=== PATIENT | male | born 1965 | race Caucasian/White ===

== ENCOUNTER 2017-08-01 23:07 | Emergency (ER) | payer OTHER ==
[~2017-08-01] VITALS: Ht 165.1 cm; Wt 96.9 kg
[~2017-08-01 23:07] MED LIST: UNABLE
[2017-08-01 23:13] VITALS: TEMP 36.8; Ht 165.1 cm; Wt 96.9 kg
[2017-08-01] MEDS ORDERED: DOXYCYCLINE HYCLATE 100 MG CAP PO ONE (23:30)
--- NOTE | 2017-08-01 23:53 | EMERGENCY ROOM VISIT NOTE ---
ED Visit Note First contact with patient: 23:16 CHIEF COMPLAINT: Tick bite HISTORY OF PRESENT ILLNESS: This 51-year-old male patient presents to the emergency department ambulatory complaining of a tick bite to the left shoulder. The patient believes that the tick has been in place for an unknown period of time. He states that he lives in the [facility] and works outside as well. His attempted to remove the tick at home and states she believes she removed most of the tick. He denies any pain. He does report some redness surrounding the tick bite. He denies any rashes, fevers or joint pain. REVIEW OF SYSTEMS: A review of systems was performed with positives and pertinent negatives listed in the history of present illness. All other systems were reviewed and are negative. ALLERGIES: No known drug allergies MEDICATIONS: No chronic medications PMH: No significant past medical history SOCIAL HISTORY: The patient lives locally with family. PHYSICAL EXAM: VITALS: Vitals are noted on the nurse's note and reviewed by myself. Vital signs stable. GENERAL: This is a 51-year-old male, in no acute distress, nondiaphoretic, well- developed well-nourished. SKIN: There is a small area of erythema to the posterior left shoulder with a small black foreign body embedded centrally. There are no further rashes. EMERGENCY DEPARTMENT COURSE: The patient was seen and examined as above. A 22- gauge needle was used to remove the remaining foreign body which appears to be a small piece of tick. Lyme prophylaxis was indicated and the patient was given a one-time dose of 200 mg doxycycline. Conservative care measures were discussed with the patient. The patient was discharged home in good condition. Blood Pressure Screening: Patient was found to have a slightly elevated blood pressure due to circumstances. I do not believe that the patient requires hypertension monitoring. Medication reconciliation: I attest that I have personally reviewed the patient 's current medication list. DIAGNOSIS: Tick bite Current/Historical Medications Miscellaneous Medications !Unable To Clarify Medication List (Unable) Allergies Coded Allergies: No Known Allergies (Unverified Adverse Reaction, Unknown, 03/16/05) Vital Signs Date Time Temp Pulse Resp B/P (MAP) Pulse Ox O2 Delivery O2 Flow Rate FiO2 08/01/17 23:58 66 18 143/87 95 08/01/17 23:13 36.8 66 18 143/87 95 Room Air Medications Administered Medications (Trade) Dose Ordered Sig/Cornel Route Start Time Stop Time Status Last Admin Dose Admin Doxycycline Hyclate (Vibramycin Cap) 200 mg ONE ONCE PO 08/01/17 23:30 08/01/17 23:32 DC 08/01/17 23:47 200 MG Departure Information Impression Primary Impression: Tick bite Dispostion Home / Self-Care Condition GOOD Referrals No Doctor, Assigned (PCP) Patient Instructions [facility] Additional Instructions Proper wound care is essential for adequate wound healing and infection prevention. You can shower and clean the wound with soap and water. Do not scour over the wound, pat dry with a towel. Do not submerse the wound (i.e. bathe or dish wash) until the wound has fully healed. You can use an antibiotic ointment with a dressing over the wound for the next 3-4 days. After this time you may leave the wound dry and open to the air. For pain control, you can use the following [id number] medicines (if >12 yo): - Regular strength (325mg/tab) Tylenol (acetaminophen) 2 tabs every 4-6 hours as needed. Do not exceed 12 tablets in a 24 hour period. Avoid taking more than 4 grams (4000 mg) of Tylenol per day. This includes any other sources of acetaminophen you may take on a regular basis. - Regular strength (200 mg/tab) Advil (ibuprofen) 1-2 tabs every 4-6 hours as needed. Do not exceed a dose of 3200 mg per day. Follow-up with your primary care provider for any new rashes, fevers, joint aches or any other new/concerning symptoms. Problem Qualifiers Primary Impression: Tick bite Encounter type: initial encounter Qualified Codes: W57.XXXA - Bitten or stung by nonvenomous insect and other nonvenomous arthropods, initial encounter
[2017-08-01 23:58] VITALS: BP 143/87; PULSE 66; O2SAT 95
== END 2017-08-01 23:58 | disposition home or self-care (01) ==
LOC: C.EDB 23:08 → C.EDC 23:58
DX: S40.262A Insect bite (nonvenomous) of left shoulder, initial encounter (principal); W57.XXXA Bitten or stung by nonvenomous insect and other nonvenomous arthropods, initial encounter

== ENCOUNTER 2019-09-06 08:07 | Observation (INO) ==
[2019-09-06] MEDS ORDERED: KETOROLAC TROMETHAMINE 15 MG/ML VIAL IV ONE (08:31)
[2019-09-06] MEDS ORDERED: ONDANSETRON INJ 2 MG/ML 2 ML VIAL IV STA (08:31)
[2019-09-06 08:43] LABS: Basophils # (auto) 0.02 K/uL (0-0.2); Basophils % (auto) 0.3 %; Eosinophils % (auto) 1.4 %; Hematocrit (blood only) 41.3 % (42-52); Hemoglobin 14.3 g/dL (14.0-18.0); Immature Granulocytes # (auto) 0.02 K/uL (0.00-0.02); Immature Granulocytes % (auto) 0.3 %; Lymphocytes # (auto) 1.08 K/uL (1.2-3.4); Lymphocytes % (auto) 14.8 %; Mean Corpuscular Hgb Conc 34.6 g/dL (32-36); Mean Corpuscular Volume 89.6 fL (80-100); Mean Platelet Volume 11.2 fL (7.4-10.4); Monocytes % (auto) 5.5 %; Neutrophils % (auto) 77.7 %; Platelet Count 183 K/uL (130-400); RDW Coefficient of Variation 13.3 % (11.5-14.5); RDW Standard Deviation 43.5 fL (36.4-46.3); Red Blood Count 4.61 M/uL (4.7-6.1); White Blood Count 7.32 K/uL (4.8-10.8)
[2019-09-06 09:00] LABS: Albumin Level 3.9 gm/dl (3.4-5.0); BUN Creatinine Ratio 12.3 (10-20); Calcium 8.7 mg/dl (8.5-10.1); Creatinine Clr Calc Pharmacy 102.6 ml/min; Est GFR (African American) 108.1; Est GFR (Non-African American) 93.3
[2019-09-06 09:03] LABS: Albumin Globulin Ratio 1.2 (0.9-2); Bilirubin,Total 0.6 mg/dl (0.2-1); Globulin 3.2 gm/dl (2.5-4.0); Total Protein 7.1 gm/dl (6.4-8.2)
--- NOTE | 2019-09-06 09:03 | CT Scan Report ---
CT SCAN OF THE ABDOMEN AND PELVIS WITHOUT CONTRAST CLINICAL HISTORY: right flank pain COMPARISON STUDY: 04/25/2019 TECHNIQUE: CT scan of the abdomen and pelvis was performed from the lung bases to the proximal femurs . Images are reviewed in the axial, sagittal, and coronal planes. IV contrast was not administered fo r this examination. A dose lowering technique was utilized adhering to the principles of ALARA. CT DOSE: 1127.20 mGy.cm FINDINGS: Lower chest: There are mild basilar atelectatic changes Liver: There are stable hypodense hepatic lesions, likely representing cysts.r in addition there is a stable 25 mm exophytic indeterminate lesion arising from the lateral segment of the left lobe. Gallbladder: Unremarkable. Spleen: Normal in size and attenuation. Pancreas: Unremarkable. Adrenal glands: Unremarkable. Kidneys: No renal, ureteral, or bladder calculi are visualized. Bowel: There are no transition zones indicate bowel obstruction. The appendix appears normal. There i s no acute diverticulitis. Peritoneum: There is no intraperitoneal free air or abdominal ascites. There are postsurgical changes of a right inguinal hernia repair Vasculature: The abdominal aorta is normal in course and caliber. Adenopathy: None. Pelvic viscera: The bladder, and pelvic viscera are unremarkable. Skeletal structures: No destructive osseous lesions are seen. IMPRESSION: 1. No acute intra-abdominal or pelvic findings 2. No evidence of bowel obstruction. No evidence of free air 3. Normal appendix. No evidence of acute diverticulitis 4. No renal, ureteral, or bladder calculi identified 5. Stable hepatic lesions Electronically signed by: Ankur Chu M.D. 09/06/2019 9:01 AM
[2019-09-06 09:09] LABS: Appearance Urine Cloudy (Clear); Bacteria Urine Automated Negative (Negative); Bilirubin Urine Negative (Negative); Blood Urine Negative (Negative); Color Urine Yellow; Epithelial Cell Urine Auto >30 /lpf (0-5); Glucose Urine UA Negative (Negative); Ketones Urine Negative (Negative); Leukocyte Esterase Urine Negative (Negative); Nitrite Urine Negative (Negative); Protein Urine Negative (Negative); RBC Urine Automated 0-4 /hpf (0-4); Specific Gravity Urine 1.017 (1.000-1.030); Urobilinogen Urine Negative (Negative); pH Urine 8.5 (4.5-7.5)
[2019-09-06] MEDS: HYDROmorphone INJ 0.5 MG/0.5 ML SYR IV PRN ×3 (09:16→13:54)
[2019-09-06] MEDS ORDERED: DEXAMETHASONE **PF** INJ 10 MG/ML VIAL IV ONE (10:25)
[2019-09-06] MEDS ORDERED: DIAZEPAM 5 MG/ML INJ 10ML VIAL IV STA (10:41)
--- NOTE | 2019-09-06 13:44 | Magnetic Resonance Report ---
MR lumbar spine wo con CLINICAL HISTORY: Severe back pain with right sided radiculopathy. Inability to walk. TECHNIQUE: Sagittal and axial T1, T2 and STIR images were obtained. COMPARISON STUDY: No previous studies for comparison. OBSERVATIONS: The vertebral bodies and posterior elements appear intact. There is no abnormal bony signal present t o suggest a marrow replacement process. L1-2: There is a mild circumferential disc bulge. There is no significant spinal or foraminal stenosi s L2-3: No disc protrusions or extrusions. No evidence of spinal canal or neural foraminal compromise. L3-4: There is a mild circumferential disc bulge. There is slight flattening of the anterior thecal s ac. There is mild facet joint arthropathy. There is no significant foraminal stenosis. L4-5: There is a small broad-based central disc protrusion. There is minor spinal canal narrowing. Th ere is minimal left-sided subforaminal narrowing. L5-S1: There is a small broad-based central disc protrusion. There is effacement of the anterior suba rachnoid space. There is mild to moderate bilateral foraminal narrowing. The conus medullaris and cauda equina appear normal. IMPRESSION: 1. Multilevel spondylytic changes with mild disc bulges at the L1-2 and L3-4 levels. In addition ther e are small broad-based central disc protrusions at the L4-5 and L5-S1 levels with very mild spinal c anal narrowing. There is mild left-sided foraminal narrowing at the L4-5 level, and mild to moderate bilateral foraminal narrowing at the L5-S1 level. Electronically signed by: Ankur Chu M.D. 09/06/2019 1:42 PM
--- NOTE | 2019-09-06 15:06 | Emergency Department Note ---
Entered by Ramya Wallace acting as a scribe for ED Provider Note CHIEF COMPLAINT: Right Flank Pain HISTORY OF PRESENT ILLNESS: The patient is a 54 year old male who presents to the Emergency Room with complaints of waxing and waning right sided flank pain that started yesterday afternoon around 1300. The patient reports that the pain peaks at 10/10 but notes that it is currently at 2/10. He states that the pain was last a 10 is morning. His notes that the patient was unable to stand up this morning secondary to the pain. The patient states that he felt like vomiting this morning but he denies any nausea currently. He denies that the pain exacerbates with palpation. He does note some worsening of the pain with movement. He denies any urinary symptoms. He denies any pain in the ribcage. He states that the pain starts in his back and radiates around his lower flank. He notes that the pain is relieved slightly by lying in a particular position. He denies taking anything for the pain. The patient denies any history of kidney stones or any similar past episodes. He denies any family history of kidney or gall sto ascencion. He notes that he takes Omeprazole, Advil, and Crestor daily. He states that he has a history of a herniated disc but denies that his current symptoms resemble past episodes of back pain. He notes that he is followed by Renea Bishop. Pt denies LOC, headache, fevers, chills, diaphoresis, visual changes, neck pain, chest pain, breathing difficulties, melena, hematochezia, urinary symptoms, numbness, weakness, bowel or bladder dysfunction, saddle numbness, lymphadenopathy, rash, or other complaints. REVIEW OF SYSTEMS: See HPI for pertinent positives and negatives. A total of ten systems were reviewed and were otherwise negative. PMHx/PSHx: HLD, PUD, herniated disc SOCIAL HISTORY: Patient lives at home. He is and employed. PHYSICAL EXAM: GENERAL: Awake, alert, uncomfortable appearing, in no distress HENT: Normocephalic, atraumatic. Oropharynx unremarkable. EYES: PERRL. Normal conjunctiva. Sclera non-icteric. NECK: Inspection normal. Non-tender. Supple. No nuchal rigidity. FROM. No masses. RESPIRATORY: Clear to auscultation. No wheezes. No rales. Normal respiratory effort. CARDIAC: Normal rate. Normal rhythm. No murmurs. No rubs. Extremities warm and well perfused. Pulses equal. No JVD. GI: Soft, non-distended. No tenderness to palpation. No rebound or guarding. No masses. RECTAL: Deferred. MUSCULOSKELETAL: Atraumatic. Chest examination reveals no tenderness. The back is symmetrical on inspection without obvious abnormality. There is no CVA tenderness to palpation. No joint edema. LOWER EXTREMITIES: Calves are equal size bilaterally and non-tender. No edema. No discoloration. NEURO: Normal sensorium. No sensory or motor deficits noted. No saddle anesthesia. SKIN: No rash or jaundice noted. EMERGENCY DEPARTMENT COURSE: 825: The patient was evaluated in room A03, and a complete history and physical examination were performed. 1010: I reevaluated the patient at this time and updated him on his current lab and imaging results. The patient stated that he was having muscle spasms on reevaluation. 1041: I reviewed the patients past records from 12/2015 [facility] [place] pain management with Dr. Davis. According to the records, patient does have degenerative changes on his MRI with foraminal narrowing at L4 and L1. Patient was treated with steroids at that time. 1220: Upon reevaluation, the patient is unable to stand up without severe pain. He is receiving additional Dilaudid. We discussed an MRI and the patient agreed to the plan. 1355: I updated the patient on his MRI results. I discussed the patient's case with DEZ Vale, who will evaluate the patient for further management and care with Dr. Crenshaw as the attending physician. MEDICAL DECISION MAKING: Prior records/ancillary studies reviewed. Patient had prior pain management injections for lumbar back pain. Triage Nursing notes reviewed and agree them. Additional history obtained from the family. The patient's history was concerning for flank and abdominal pain. Differential diagnosis: Etiologies such as renal colic, appendicitis, diverticulitis, mesenteric ischemia, aortic pathology, infections, inflammatory bowel disease, PUD, biliary pathology, UTI, as well as others were entertained. Physical examination findings: As above. ER treatment provided: IV Toradol IV Zofran IV Decadron IV Dilaudid x4 IV Valium On reassessment the patient felt somewhat better but still had significant pain and difficulty moving. Diagnostic interpretation by me: The labs revealed an unremarkable CBC. Urinalysis revealed no abnormal findings. The patient had an unremarkable chemistry panel. Imaging studies: CT imaging of the abdomen pelvis did not reveal any acute findings. Specifically no ureteral lithiasis. Due to the intractable pain and inability to ambulate the patient underwent MR imaging. There is multilevel degenerative change in the lumbar spine but no process that require acute surgical intervention. The patient has intractable pain and cannot ambulate. Further management in the hospital will be necessary. Consultation: A consultation was placed with the hospitalist. The case was discussed and diagnostics were reviewed. The patient was evaluated in the ER for further treatment. IMPRESSION: Intractable back pain, Degenerative disc disease (lumbar spine) PLAN: Being evaluated by a hospitalist The scribe's documentation has been prepared under my direction and personally reviewed by me in its entirety. I confirm that the note above accurately reflects all work, treatment, procedures, and medical decision making performed by me. Impression & Plan Intractable back pain, Degenerative disc disease, lumbar Past Med/Surg History Medical History HLD (hyperlipidemia) (Chronic) Herniated disc Peptic ulcer disease Surgical History Hx of shoulder surgery Family History Family/Other No problems noted. Father Colorectal cancer Social History Preferred Language: Telugu Communication Ability: Effective Bowl Attendant Required: No Beliefs That Will Affect Care: None marital status: Current Living Situation: Spouse current occupational status: employed Other Information That Helps Us Care for You: No Feels Safe at Home: Yes Safety Concerns: Feels Safe At This Time Smoking Status: Former smoker Tobacco Type: cigarettes ; Smoking End Date: 35 years ago minimally; occasional cigar for celebration. ; Second Hand Exposure: No ; Tobacco Cessation Education Requested by Patient: No Hx Alcohol Use: Yes Alcohol type: beer and hard liquor Hx Substance Use: Yes substance use type: marijuana Last Used Substance: Unknown Last Used Substance Other:: Weeks ago. Results & Data Vital Signs Vital Signs - 24 hr 09/06/19 08:13 09/06/19 08:21 09/06/19 08:58 Temperature 36.7 C Temperature Source Oral Sepsis Recent Fever Within 48 Hours No Sepsis New/Unexplained Change in Mental Status No Sepsis Action Taken by Nursing No Action Required Pulse Rate 69 Pulse Rate [Left Finger] 67 Pulse Rhythm Regular Pulse Rhythm [Left Finger] Regular Pulse Strength Normal Pulse Strength [Left Finger] Normal Respiratory Rate 20 20 Respiratory Effort / Characteristics Non-Labored Spontaneous Non-Labored Spontaneous Respiratory Depth Normal Normal Respiratory Pattern Regular Regular Blood Pressure 151/90 H Blood Pressure [Right Arm] 137/85 Blood Pressure Mean 110 Blood Pressure Mean [Right Arm] 102 Blood Pressure Position Sitting Blood Pressure Position [Right Arm] Sitting Pulse Oximetry 97 96 96 Oxygen Delivery Method Room Air Room Air Room Air 09/06/19 10:34 09/06/19 11:23 09/06/19 12:30 Temperature Temperature Source Sepsis Recent Fever Within 48 Hours Sepsis New/Unexplained Change in Mental Status Sepsis Action Taken by Nursing Pulse Rate Pulse Rate [Left Finger] 73 73 67 Pulse Rhythm Pulse Rhythm [Left Finger] Regular Regular Regular Pulse Strength Pulse Strength [Left Finger] Normal Normal Normal Respiratory Rate 20 20 18 Respiratory Effort / Characteristics Non-Labored Spontaneous Non-Labored Spontaneous Non-Labored Spontaneous Respiratory Depth Normal Normal Normal Respiratory Pattern Regular Regular Regular Blood Pressure Blood Pressure [Right Arm] 113/69 144/93 H 127/78 Blood Pressure Mean Blood Pressure Mean [Right Arm] 83 110 94 Blood Pressure Position Blood Pressure Position [Right Arm] Sitting Sitting Sitting Pulse Oximetry 95 93 93 Oxygen Delivery Method Room Air Room Air Room Air Home Medications Current Medication List: was personally reviewed by me Laboratory Data Attestation: I reviewed the patient's lab results. Result diagrams: 09/06/19 08:27 09/06/19 08:27 Lab Results 09/06/19 09/06/19 09/06/19 Range/Units 08:27 08:27 08:57 WBC 7.32 (4.8-10.8) K/uL RBC 4.61 L (4.7-6.1) M/uL Hgb 14.3 (14.0-18.0) g/dL Hct 41.3 L (42-52) % MCV 89.6 (80-100) fL MCH 31.0 (25-34) pg MCHC 34.6 (32-36) g/dL RDW Std Deviation 43.5 (36.4-46.3) fL RDW Coeff of [place] 13.3 (11.5-14.5) % Plt Count 183 (130-400) K/uL MPV 11.2 H (7.4-10.4) fL Immature Gran % (Auto) 0.3 % Neut % (Auto) 77.7 % Lymph % (Auto) 14.8 % [place] % (Auto) 5.5 % Eos % (Auto) 1.4 % Baso % (Auto) 0.3 % Immature Gran # (Auto) 0.02 (0.00-0.02) K/uL Neut # (Auto) 5.70 (1.4-6.5) K/uL Lymph # (Auto) 1.08 L (1.2-3.4) K/uL [place] # (Auto) 0.40 (0.11-0.59) K/uL Eos # (Auto) 0.10 (0-0.5) K/uL Baso # (Auto) 0.02 (0-0.2) K/uL Sodium 137 (136-145) mmol/L Potassium 4.0 (3.5-5.1) mmol/L Chloride 104 (98-107) mmol/L Carbon Dioxide 28 (21-32) mmol/L Anion Gap 5.0 (3-11) BUN 11 (7-18) mg/dl Creatinine 0.92 (0.6-1.4) mg/dl Est Cr Clr Drug Dosing 102.6 ml/min Est GFR ( Amer) 108.1 Est GFR (Non-Af Amer) 93.3 BUN/Creatinine Ratio 12.3 (10-20) Glucose 118 H (70-99) mg/dl Calcium 8.7 (8.5-10.1) mg/dl Total Bilirubin 0.6 (0.2-1) mg/dl AST 19 (15-37) U/L ALT 43 (12-78) U/L Alkaline Phosphatase 60 (45-117) U/L Total Protein 7.1 (6.4-8.2) gm/dl Albumin 3.9 (3.4-5.0) gm/dl Globulin 3.2 (2.5-4.0) gm/dl Albumin/Globulin Ratio 1.2 (0.9-2) Lipase 64 L (73-393) U/L Urine Color Yellow Urine Appearance Cloudy A (Clear) Urine pH 8.5 H (4.5-7.5) Ur Specific [place] 1.017 (1.000-1.030) Urine Protein Negative (Negative) Urine Glucose (UA) Negative (Negative) Urine Ketones Negative (Negative) Urine Blood Negative (Negative) Urine Nitrite Negative (Negative) Urine Bilirubin Negative (Negative) Urine Urobilinogen Negative (Negative) Ur Leukocyte Esterase Negative (Negative) Urine WBC (Auto) 1-5 (0-5) /hpf Urine RBC (Auto) 0-4 (0-4) /hpf U Hyaline Cast (Auto) 1-5 (0-5) /lpf U Epithel Cells (Auto) >30 H (0-5) /lpf Urine Bacteria (Auto) Negative (Negative) Ur Renal Epithelial Cell Not Reportable Administered Medications Hydromorphone HCl (Dilaudid) 0.5 mg IV Q15M PRN PRN Reason: Pain Stop: 09/20/19 08:30 Last Admin: 09/06/19 13:54 Dose: 0.5 mg Documented by: [id number] Admin: 09/06/19 11:39 Dose: 0.5 mg Documented by: [id number] Admin: 09/06/19 09:16 Dose: 0.5 mg Documented by: [id number] Discontinued Medications Dexamethasone Sodium Phosphate (Decadron Pf) 10 mg IV NOW ONE Stop: 09/06/19 10:26 Last Admin: 09/06/19 10:33 Dose: 10 mg Documented by: [id number] Diazepam (Valium) 5 mg IV NOW STA Stop: 09/06/19 10:42 Last Admin: 09/06/19 10:47 Dose: 5 mg Documented by: [id number] Ketorolac Tromethamine (Toradol) 10 mg IV NOW ONE Stop: 09/06/19 08:32 Last Admin: 09/06/19 08:38 Dose: 10 mg Documented by: [id number] Ondansetron HCl (Zofran) 4 mg IV NOW STA Stop: 09/06/19 08:32 Last Admin: 09/06/19 08:38 Dose: 4 mg Documented by: [id number] Blood Pressure Blood Pressure Findings: Elevated blood pressure Blood Pressure Disposition: elevated BP felt to be situational Medical Decision Making Medical Records Attestation: I reviewed the patient's medical records. Home Medications Current Medication List: was personally reviewed by me Laboratory Data Attestation: I reviewed the patient's lab results. Result diagrams: 09/06/19 08:27 09/06/19 08:27 Lab Results 09/06/19 09/06/19 09/06/19 Range/Units 08:27 08:27 08:57 WBC 7.32 (4.8-10.8) K/uL RBC 4.61 L (4.7-6.1) M/uL Hgb 14.3 (14.0-18.0) g/dL Hct 41.3 L (42-52) % MCV 89.6 (80-100) fL MCH 31.0 (25-34) pg MCHC 34.6 (32-36) g/dL RDW Std Deviation 43.5 (36.4-46.3) fL RDW Coeff of [place] 13.3 (11.5-14.5) % Plt Count 183 (130-400) K/uL MPV 11.2 H (7.4-10.4) fL Immature Gran % (Auto) 0.3 % Neut % (Auto) 77.7 % Lymph % (Auto) 14.8 % [place] % (Auto) 5.5 % Eos % (Auto) 1.4 % Baso % (Auto) 0.3 % Immature Gran # (Auto) 0.02 (0.00-0.02) K/uL Neut # (Auto) 5.70 (1.4-6.5) K/uL Lymph # (Auto) 1.08 L (1.2-3.4) K/uL [place] # (Auto) 0.40 (0.11-0.59) K/uL Eos # (Auto) 0.10 (0-0.5) K/uL Baso # (Auto) 0.02 (0-0.2) K/uL Sodium 137 (136-145) mmol/L Potassium 4.0 (3.5-5.1) mmol/L Chloride 104 (98-107) mmol/L Carbon Dioxide 28 (21-32) mmol/L Anion Gap 5.0 (3-11) BUN 11 (7-18) mg/dl Creatinine 0.92 (0.6-1.4) mg/dl Est Cr Clr Drug Dosing 102.6 ml/min Est GFR ( Amer) 108.1 Est GFR (Non-Af Amer) 93.3 BUN/Creatinine Ratio 12.3 (10-20) Glucose 118 H (70-99) mg/dl Calcium 8.7 (8.5-10.1) mg/dl Total Bilirubin 0.6 (0.2-1) mg/dl AST 19 (15-37) U/L ALT 43 (12-78) U/L Alkaline Phosphatase 60 (45-117) U/L Total Protein 7.1 (6.4-8.2) gm/dl Albumin 3.9 (3.4-5.0) gm/dl Globulin 3.2 (2.5-4.0) gm/dl Albumin/Globulin Ratio 1.2 (0.9-2) Lipase 64 L (73-393) U/L Urine Color Yellow Urine Appearance Cloudy A (Clear) Urine pH 8.5 H (4.5-7.5) Ur Specific [place] 1.017 (1.000-1.030) Urine Protein Negative (Negative) Urine Glucose (UA) Negative (Negative) Urine Ketones Negative (Negative) Urine Blood Negative (Negative) Urine Nitrite Negative (Negative) Urine Bilirubin Negative (Negative) Urine Urobilinogen Negative (Negative) Ur Leukocyte Esterase Negative (Negative) Urine WBC (Auto) 1-5 (0-5) /hpf Urine RBC (Auto) 0-4 (0-4) /hpf U Hyaline Cast (Auto) 1-5 (0-5) /lpf U Epithel Cells (Auto) >30 H (0-5) /lpf Urine Bacteria (Auto) Negative (Negative) Ur Renal Epithelial Cell Not Reportable Imaging Data Radiologist's Impression: Radiology results as stated below per my review and the radiologist's interpretation: CT SCAN OF THE ABDOMEN AND PELVIS WITHOUT CONTRAST CLINICAL HISTORY: right flank pain COMPARISON STUDY: 04/25/2019 TECHNIQUE: CT scan of the abdomen and pelvis was performed from the lung bases to the proximal femurs. Images are reviewed in the axial, sagittal, and coronal planes. IV contrast was not administered for this examination. A dose lowering technique was utilized adhering to the principles of ALARA. CT DOSE: 1127.20 mGy.cm FINDINGS: Lower chest: There are mild basilar atelectatic changes Liver: There are stable hypodense hepatic lesions, likely representing cysts.r in addition there is a stable 25 mm exophytic indeterminate lesion arising from the lateral segment of the left lobe. Gallbladder: Unremarkable. Spleen: Normal in size and attenuation. Pancreas: Unremarkable. Adrenal glands: Unremarkable. Kidneys: No renal, ureteral, or bladder calculi are visualized. Bowel: There are no transition zones indicate bowel obstruction. The appendix appears normal. There is no acute diverticulitis. Peritoneum: There is no intraperitoneal free air or abdominal ascites. There are postsurgical changes of a right inguinal hernia repair Vasculature: The abdominal aorta is normal in course and caliber. Adenopathy: None. Pelvic viscera: The bladder, and pelvic viscera are unremarkable. Skeletal structures: No destructive osseous lesions are seen. IMPRESSION: 1. No acute intra-abdominal or pelvic findings 2. No evidence of bowel obstruction. No evidence of free air 3. Normal appendix. No evidence of acute diverticulitis 4. No renal, ureteral, or bladder calculi identified 5. Stable hepatic lesions Electronically signed by: Ankur Chu M.D. 09/06/2019 9:01 AM MR lumbar spine wo con CLINICAL HISTORY: Severe back pain with right sided radiculopathy. Inability to walk. TECHNIQUE: Sagittal and axial T1, T2 and STIR images were obtained. COMPARISON STUDY: No previous studies for comparison. OBSERVATIONS: The vertebral bodies and posterior elements appear intact. There is no abnormal bony signal present to suggest a marrow replacement process. L1-2: There is a mild circumferential disc bulge. There is no significant spinal or foraminal stenosis L2-3: No disc protrusions or extrusions. No evidence of spinal canal or neural foraminal compromise. L3-4: There is a mild circumferential disc bulge. There is slight flattening of the anterior thecal sac. There is mild facet joint arthropathy. There is no significant foraminal stenosis. L4-5: There is a small broad-based central disc protrusion. There is minor spinal canal narrowing. There is minimal left-sided subforaminal narrowing. L5-S1: There is a small broad-based central disc protrusion. There is effacement of the anterior subarachnoid space. There is mild to moderate bilateral foraminal narrowing. The conus medullaris and cauda equina appear normal. IMPRESSION: 1. Multilevel spondylytic changes with mild disc bulges at the L1-2 and L3-4 levels. In addition there are small broad-based central disc protrusions at the L4-5 and L5-S1 levels with very mild spinal canal narrowing. There is mild left-sided foraminal narrowing at the L4-5 level, and mild to moderate bilateral foraminal narrowing at the L5-S1 level. Electronically signed by: Ankur Chu M.D. 09/06/2019 1:42 PM Blood Pressure Blood Pressure Findings: Elevated blood pressure Blood Pressure Disposition: elevated BP felt to be situational MDM Narrative Discharge Plan Visit Data Chief Complaint: Flank Pain Stated Complaint: R flank pain ED Provider: Farhan Barrientos Discharge Problem: Intractable back pain, Degenerative disc disease, lumbar Patient Disposition: Being Evaluated by Hospitalist Forms Stand Alone Forms: My [facility] [place] [employer] Prescriptions Prescriptions: No Action multivitamin Tablet 1 tab PO QAM RF: 0 ibuprofen 200 mg Tablet 800 mg PO QAM RF: 0 diphenhydramine-acetaminophen [Tylenol PM Extra Strength] 25-500 mg Tablet 1 tab PO UD RF: 0 omega 0-dce-fip-fish oil [Fish Oil] 1,000 mg (120 mg-180 mg) Capsule 1 cap PO QDD RF: 0 omeprazole 20 mg Capsule,Delayed Release(Dr/Ec) 20 mg PO BID RF: 0 rosuvastatin [Crestor] 10 mg Tablet 10 mg PO QAM RF: 0 Referrals Referrals: Mariusz Gupta DO [Primary Care Provider] - The scribe's documentation has been prepared under my direction and personally reviewed by me in its entirety. I confirm that the note above accurately reflects all work, treatment, procedures, and medical decision making performed by me.
--- NOTE | 2019-09-06 16:21 | History & Physical Report ---
Date of Service September 06, 2019 Assessment & Plan (1) Intractable back pain: Secondary to disc herniation with foraminal stenosis Lumbar spine MRI: Multilevel spondylytic changes with mild disc bulges at the L1-2 and L3-4 levels. In addition there are small broad-based central disc protrusions at the L4-5 and L5-S1 levels with very mild spinal canal narrowing. There is mild left- sided foraminal narrowing at the L4-5 level, and mild to moderate bilateral foraminal narrowing at the L5-S1 level. --Medrol IV 100 mg every 12 hours, Tylenol 1000 mg p.o. every 8 hours, gabapentin 300 mg twice daily, Dilaudid 0.5 mg every 4 hours as needed, Toradol 30 mg IV every 6 hours as needed --IV NS --Consult orthopedic spine Dr. Sprague Consult pain management --PT OT evaluation Prediabetes A1c BSG's , on Solu-Medrol Dyslipidemia Continue rosuvastatin and fish oil GERD Continue omeprazole DVT prophylaxis SCDs for now in case of procedures Disposition Lives at home with family PT and OT evaluation History of Present Illness 54-year-old male with history of diabetes, dyslipidemia, GERD, presenting with severe low back pain since yesterday. Patient reports that he noted to have severe low back pain starting yesterday around 1 PM, while painting a wall. Pain originates from the right lower back region spreading to the right flank and right groin, severe, worse with movement or walking. No urinary or bowel incontinence, saddle anesthesia, leg paresthesias or numbness. 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 Pain progressed to the point that the patient cannot walk secondary to pain. At the ER, CT abdomen and pelvis did not show any acute process, no nephrolithiasis. Lumbar spine MRI showed: Multilevel spondylytic changes with mild disc bulges at the L1-2 and L3-4 levels. In addition there are small broad-based central disc protrusions at the L4-5 and L5-S1 levels with very mild spinal canal narrowing. There is mild left- sided foraminal narrowing at the L4-5 level, and mild to moderate bilateral foraminal narrowing at the L5-S1 level. He received IV Toradol, IV Dilaudid, Decadron, Valium. On exam, patient reports pain is 6 out of 10, improved since being given analgesics. No other symptoms. Primary Care Provider: Mariusz Gupta DO Allergies Allergy/AdvReac Type Severity Reaction Status Date / Time No Known Allergies AdvReac Unknown Unverified 09/06/19 09:13 Home Medications Home Medications Medication Instructions Recorded Confirmed Type omeprazole 20 mg PO BID 04/25/19 09/06/19 History rosuvastatin [Crestor] 10 mg PO QAM 04/25/19 09/06/19 History diphenhydramine-acetaminophen 1 tab PO UD 09/06/19 09/06/19 History [Tylenol PM Extra Strength] ibuprofen 800 mg PO QAM 09/06/19 09/06/19 History multivitamin 1 tab PO QAM 09/06/19 09/06/19 History omega 5-jaf-zvr-fish oil [Fish Oil] 1 cap PO QDD 09/06/19 09/06/19 History Past Med/Surg History Medical History HLD (hyperlipidemia) (Chronic) Herniated disc Peptic ulcer disease Surgical History Hx of shoulder surgery Family History Family/Other No problems noted. 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 ; Second Hand Exposure: No ; Tobacco Cessation Education Requested by Patient: No Hx Alcohol Use: Yes Alcohol type: beer and hard liquor Hx Substance Use: Yes substance use type: marijuana Last Used Substance: Unknown Last Used Substance Other:: Weeks ago. Review of Systems Review of Systems: All systems reviewed & are unremarkable except as noted in HPI & below Physical Exam Physical Exam: General- oriented x 3, not in distress, speaks in sentences with no effort or accessory muscle use Head- atraumatic Eyes- PERRL, EOMI, anicteric ENT- oropharynx clear Neck- supple, no JVD, no adenopathy, no thyromegaly; carotids +2/2, no bruits appreciated Lungs- clear to auscultation bilaterally, no rales/wheezes Heart- normal rate, regular rhythm; no murmur, no gallop, no rub appreciated Abdomen- normal bowel sounds, nondistended, soft, nontender, no masses or hepatosplenomegaly Extremities- no pretibial edema, no calf tenderness; peripheral pulses intact Positive straight leg test Neuro- alert, oriented x 3; CN 2-12 grossly intact; motor 5/5 bilaterally;sensation 100% on all extremities; no other gross focal neurologic deficits Skin- warm & dry Results & Data Vital Signs (Past 12 Hours) Vital Signs Temp Pulse Pulse Resp BP BP Pulse Ox 09/06/19 12:30 67 18 127/78 93 09/06/19 11:23 73 20 144/93 H 93 09/06/19 10:34 73 20 113/69 95 09/06/19 08:58 67 20 137/85 96 09/06/19 08:21 96 09/06/19 08:13 36.7 C 69 20 151/90 H 97 Laboratory Results Laboratory Results - last 24 hr 09/06/19 09/06/19 09/06/19 08:27 08:27 08:27 WBC 7.32 RBC 4.61 L Hgb 14.3 Hct 41.3 L MCV 89.6 MCH 31.0 MCHC 34.6 RDW Std Deviation 43.5 RDW Coeff of [place] 13.3 Plt Count 183 MPV 11.2 H Immature Gran % (Auto) 0.3 Neut % (Auto) 77.7 Lymph % (Auto) 14.8 [place] % (Auto) 5.5 Eos % (Auto) 1.4 Baso % (Auto) 0.3 Immature Gran # (Auto) 0.02 Neut # (Auto) 5.70 Lymph # (Auto) 1.08 L [place] # (Auto) 0.40 Eos # (Auto) 0.10 Baso # (Auto) 0.02 Sodium 137 Potassium 4.0 Chloride 104 Carbon Dioxide 28 Anion Gap 5.0 BUN 11 Creatinine 0.92 Est Cr Clr Drug Dosing 102.6 Est GFR ( Amer) 108.1 Est GFR (Non-Af Amer) 93.3 BUN/Creatinine Ratio 12.3 Glucose 118 H Calcium 8.7 Total Bilirubin 0.6 AST 19 ALT 43 Alkaline Phosphatase 60 Total Protein 7.1 Albumin 3.9 Globulin 3.2 Albumin/Globulin Ratio 1.2 Lipase 64 L Urine Color Urine Appearance Urine pH Ur Specific [place] Urine Protein Urine Glucose (UA) Urine Ketones Urine Blood Urine Nitrite Urine Bilirubin Urine Urobilinogen Ur Leukocyte Esterase Urine WBC (Auto) Urine RBC (Auto) U Hyaline Cast (Auto) U Epithel Cells (Auto) Urine Bacteria (Auto) Ur Renal Epithelial Cell Hepatitis C Ab Screen Neg 09/06/19 08:57 WBC RBC Hgb Hct MCV MCH MCHC RDW Std Deviation RDW Coeff of [place] Plt Count MPV Immature Gran % (Auto) Neut % (Auto) Lymph % (Auto) [place] % (Auto) Eos % (Auto) Baso % (Auto) Immature Gran # (Auto) Neut # (Auto) Lymph # (Auto) [place] # (Auto) Eos # (Auto) Baso # (Auto) Sodium Potassium Chloride Carbon Dioxide Anion Gap BUN Creatinine Est Cr Clr Drug Dosing Est GFR ( Amer) Est GFR (Non-Af Amer) BUN/Creatinine Ratio Glucose Calcium Total Bilirubin AST ALT Alkaline Phosphatase Total Protein Albumin Globulin Albumin/Globulin Ratio Lipase Urine Color Yellow Urine Appearance Cloudy A Urine pH 8.5 H Ur Specific [place] 1.017 Urine Protein Negative Urine Glucose (UA) Negative Urine Ketones Negative Urine Blood Negative Urine Nitrite Negative Urine Bilirubin Negative Urine Urobilinogen Negative Ur Leukocyte Esterase Negative Urine WBC (Auto) 1-5 Urine RBC (Auto) 0-4 U Hyaline Cast (Auto) 1-5 U Epithel Cells (Auto) >30 H Urine Bacteria (Auto) Negative Ur Renal Epithelial Cell Not Reportable Hepatitis C Ab Screen Code Status & VTE Plan Code Status FULL CODE
[2019-09-06] MEDS ORDERED: GLUCOSE 40% GEL 15 GM TUBE PO PRN (16:55)
[2019-09-06] MEDS ORDERED: GLUCAGON FOR INJ 1 MG VIAL SQ PRN (16:55)
[2019-09-06] MEDS ORDERED: DEXTROSE 50% 50 ML SYRINGE IV PRN (16:55)
[2019-09-06] MEDS ORDERED: GLUCOSE 10 TABS/TUBE PO PRN (16:55)
[2019-09-06] MEDS ORDERED: ONDANSETRON INJ 2 MG/ML 2 ML VIAL IV PRN (16:55)
[2019-09-06] MEDS ORDERED: HYDROmorphone INJ 0.5 MG/0.5 ML SYR IV PRN (16:55)
[2019-09-06] MEDS ORDERED: CARBOHYDRATES FOR HYPOGLYCEMIA PO PRN (16:55)
[2019-09-06] MEDS ORDERED: OMEGA-3 (PURIFIED FISH OIL) 1 GM CAP PO SCH (17:30)
[2019-09-06] MEDS: KETOROLAC 30 MG/ML VIAL IV PRN (17:31)
[2019-09-06] MEDS: SODIUM CHLORIDE 0.9% 1000ML 1,000 ML IV SCH (17:41)
[2019-09-06] MEDS: ACETAMINOPHEN 500 MG TAB PO SCH (17:41)
[2019-09-06] MEDS: GABAPENTIN 300 MG CAP PO SCH ×2 (17:42→22:37)
[2019-09-06] MEDS: methylPREDNISolone 40 MG in SYRINGE 0 ML IV SCH (21:27)
[2019-09-06] MEDS: PANTOprazole 40 MG TAB PO SCH (21:27)
[2019-09-07] MEDS: KETOROLAC 30 MG/ML VIAL IV PRN (06:07)
[2019-09-07] MEDS: SODIUM CHLORIDE 0.9% 1000ML 1,000 ML IV SCH (06:07)
[2019-09-07] MEDS: ACETAMINOPHEN 500 MG TAB PO SCH (06:11)
[2019-09-07 06:41] LABS: BUN Creatinine Ratio 20.7 (10-20); Creatinine Clr Calc Pharmacy 130.5 ml/min; Est GFR (African American) 121.7; Potassium 4.2 mmol/L (3.5-5.1)
[2019-09-07] MEDS ORDERED: IBUPROFEN 800 MG TAB PO PRN (08:24)
[2019-09-07] MEDS ORDERED: OXYCODONE HCL IR 5 MG TAB (IMMEDIATE RELEASE) PO PRN (08:24)
[2019-09-07] MEDS: PANTOprazole 40 MG TAB PO SCH (08:45)
[2019-09-07] MEDS: methylPREDNISolone 40 MG in SYRINGE 0 ML IV SCH (08:45)
[2019-09-07] MEDS: GABAPENTIN 300 MG CAP PO SCH (08:45)
--- NOTE | 2019-09-07 08:57 | Consultation ---
Date of Consultation September 07, 2019 Assessment & Plan (1) Intractable back pain: Patient's pain is significantly improved. Most likely a lumbar strain. There are no acute surgical indications. Does not require any type of pain management at this point in time. We will continue with activity as tolerated/physical therapy. Ambulate as tolerated. Lifting is as tolerated. Orthopedically stable for discharge. follow-up was on an as needed basis. Supervising Physician Co-Signing Physician Notes Dr. Julio Cesar Sprague History of Present Illness Is a pleasant 54-year-old gentleman that we are asked to see in consultation for his lumbar spine. Patient states about 48 hours ago after painting he had an acute onset of severe right-sided lumbar/flank pain. Denies radicular pain. He was unable to ambulate or control the pain at home therefore his brought him to the emergency room where he was subsequently admitted. This morning he states his pain is about 70 to 80% improved. He was having right-sided groin pain that has since resolved. He is up and ambulatory around the room and voiding without issue. Currently ambulating independently. Denies bowel or bl adder dysfunction. He has had a similar episode about 3 years ago but not to the degree of this more recent flareup. He underwent pain management injections with Dr. Davis at that point in time. Attending Physician: Laura Mendoza DO Allergies Allergy/AdvReac Type Severity Reaction Status Date / Time No Known Allergies AdvReac Unknown Unverified 09/06/19 09:13 Home Medications Home Medications Medication Instructions Recorded Confirmed Type omeprazole 20 mg PO BID 04/25/19 09/06/19 History rosuvastatin [Crestor] 10 mg PO QAM 04/25/19 09/06/19 History diphenhydramine-acetaminophen 1 tab PO UD 09/06/19 09/06/19 History [Tylenol PM Extra Strength] ibuprofen 800 mg PO QAM 09/06/19 09/06/19 History multivitamin 1 tab PO QAM 09/06/19 09/06/19 History omega 4-tay-exo-fish oil [Fish Oil] 1 cap PO QDD 09/06/19 09/06/19 History Patient History Medical History HLD (hyperlipidemia) (Chronic) Herniated disc Peptic ulcer disease Surgical History Hx of shoulder surgery Family History Family/Other No problems noted. 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 ; Second Hand Exposure: No ; Tobacco Cessation Education Requested by Patient: No Hx Alcohol Use: Yes Alcohol type: beer and hard liquor Hx Substance Use: Yes substance use type: marijuana Last Used Substance: Unknown Last Used Substance Other:: Weeks ago. Review of Systems Review of Systems: All systems reviewed & are unremarkable except as noted in HPI & below Physical Exam Physical Exam: He sitting on the edge of the bed in conjunction with his . He is in no obvious distress. Cooperative the exam. There is no obvious skin markings or lesions across the thoracal lumbar spine. Nontender to palpation and percussion to the thoracolumbar spine. Nontender over the sacroiliac regions. Lower extremities are neurovascular intact bilaterally. Negative tension signs bilaterally. Motor testing is 5 5 bilateral EHL, dorsiflexion, plantar flexion, quadriceps, hamstrings, hip flexors hip abductor's and hip adductor's. Constitutional: WD/WN, vitals as above Eyes: normal visual marin by confrontation ENMT: external ear and nose normal, oropharynx normal Neck: normal visual inspection Respiratory: normal respiratory effort Cardiovascular: Extremities: normal capillary refill Gastrointestinal (Abdomen): Inspection/Auscultation: abdomen normal to inspection Musculoskeletal: no cyanosis or clubbing, extremities motor strength 5/5 Extremities: extremities normal to inspection and strength 5/5 throughout Skin: no rashes, warm and dry Neurologic: patellar DTR's 2+ bilat, sensation intact deep tendon reflexes 2+ bilaterally and moves all extremities Psychiatric: A+Ox3, euthymic affect Results & Data Vital Signs (Past 12 Hours) Vital Signs Temp Pulse Resp BP Pulse Ox 09/07/19 07:54 36.7 C 80 18 133/85 93 09/06/19 23:25 36.4 C L 77 18 123/73 94 Diagnostic Findings Patient: HUNG SHABAZZ Date: 09/06/19 MR#: [id number]: [address] Acct ID:[id number]: Date: 1965City Zip: [place] [address] Age: 54Location: ED Sex: M Room/Bed: Att Phy:Diagnosis: R flank pain Yvette Phy: Mariusz Gupta, DOService Date: 09/06/19 Fam Phy:Interpreting Phy: Ankur Chu MD Admit Phy: Ordering Phy: Hung Barrientos MD cc: ~ MR lumbar spine wo con CLINICAL HISTORY: Severe back pain with right sided radiculopathy. Inability to walk. TECHNIQUE: Sagittal and axial T1, T2 and STIR images were obtained. COMPARISON STUDY: No previous studies for comparison. OBSERVATIONS: The vertebral bodies and posterior elements appear intact. There is no abnormal bony signal present to suggest a marrow replacement process. L1-2: There is a mild circumferential disc bulge. There is no significant spinal or foraminal stenosis L2-3: No disc protrusions or extrusions. No evidence of spinal canal or neural foraminal compromise. L3-4: There is a mild circumferential disc bulge. There is slight flattening of the anterior thecal sac. There is mild facet joint arthropathy. There is no significant foraminal stenosis. L4-5: There is a small broad-based central disc protrusion. There is minor spinal canal narrowing. There is minimal left-sided subforaminal narrowing. L5-S1: There is a small broad-based central disc protrusion. There is effacement of the anterior subarachnoid space. There is mild to moderate bilateral foraminal narrowing. The conus medullaris and cauda equina appear normal. IMPRESSION: 1. Multilevel spondylytic changes with mild disc bulges at the L1-2 and L3-4 levels. In addition there are small broad-based central disc protrusions at the L4-5 and L5-S1 levels with very mild spinal canal narrowing. There is mild left- sided foraminal narrowing at the L4-5 level, and mild to moderate bilateral foraminal narrowing at the L5-S1 level. Electronically signed by: Ankur Chu M.D. 09/06/2019 1:42 PM Dictated: 09/06/19 1336 Transcribed: 09/06/19 1336
[2019-09-07] MEDS ORDERED: LIDOCAINE 5% 1 PATCH TD SCH (09:00)
[2019-09-07] MEDS ORDERED: MULTIVITAMIN TAB PO SCH (09:00)
[2019-09-07] MEDS ORDERED: ROSUVASTATIN CALCIUM 10 MG TAB PO SCH (09:00)
[2019-09-07] MEDS ORDERED: DOCUSATE SODIUM/SENNA 50/8.6MG TAB PO SCH (09:00)
--- NOTE | 2019-09-07 14:17 | Discharge Summary ---
Date of Service September 07, 2019 Admission HPI Per Admitting Provider 54-year-old male with history of diabetes, dyslipidemia, GERD, presenting with severe low back pain since yesterday. Patient reports that he noted to have severe low back pain starting yesterday around 1 PM, while painting a wall. Pain originates from the right lower back region spreading to the right flank and right groin, severe, worse with movement or walking. No urinary or bowel incontinence, saddle anesthesia, leg paresthesias or numbness. 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 Pain progressed to the point that the patient cannot walk secondary to pain. At the ER, CT abdomen and pelvis did not show any acute process, no nephrolithiasis. Lumbar spine MRI showed: Multilevel spondylytic changes with mild disc bulges at the L1-2 and L3-4 levels. In addition there are small broad-based central disc protrusions at the L4-5 and L5-S1 levels with very mild spinal canal narrowing. There is mild left- sided foraminal narrowing at the L4-5 level, and mild to moderate bilateral foraminal narrowing at the L5-S1 level. He received IV Toradol, IV Dilaudid, Decadron, Valium. On exam, patient reports pain is 6 out of 10, improved since being given analgesics. No other symptoms. Admission Exam Per Admitting Provider General- oriented x 3, not in distress, speaks in sentences with no effort or accessory muscle use Head- atraumatic Eyes- PERRL, EOMI, anicteric ENT- oropharynx clear Neck- supple, no JVD, no adenopathy, no thyromegaly; carotids +2/2, no bruits appreciated Lungs- clear to auscultation bilaterally, no rales/wheezes Heart- normal rate, regular rhythm; no murmur, no gallop, no rub appreciated Abdomen- normal bowel sounds, nondistended, soft, nontender, no masses or hepatosplenomegaly Extremities- no pretibial edema, no calf tenderness; peripheral pulses intact Positive straight leg test Neuro- alert, oriented x 3; CN 2-12 grossly intact; motor 5/5 bilater ally;sensation 100% on all extremities; no other gross focal neurologic deficits Skin- warm & dry Principal Diagnosis acute back pain 2/2/ lumbar strain Discharge Exam CONSTITUTIONAL: WNWD, vitals as above, generally well-appearing EYES: normal conjunctivae, no scleral icterus ENT: MMM RESPIRATORY: clear to auscultation bilaterally, no crackles, rales or wheezes, normal respiratory effort CARDIOVASCULAR: regular rate and rhythm, S1 and 2 heard without murmurs, gallops or rubs, no JVD, no peripheral edema GASTROINTESTINAL: normal bowel sounds, soft, nontender, nondistended MUSCULOSKELETAL: strength 5/5 throughout, head is normocephalic and atraumatic, no lower back pain to palpation, no sacral pain to palpation. SKIN: warm and dry NEUROLOGIC: patellar DTR 2+ bilat. CN 2-12 grossly intact, no sensory deficit in lower extremities, normal cognition, normal speech, no gross focal deficits. PSYCHIATRIC: alert cooperative and oriented to person, place and time. Discharge Data Allergies Allergy/AdvReac Type Severity Reaction Status Date / Time No Known Allergies AdvReac Unknown Unverified 09/06/19 09:13 Consultations 09/06/19 14:01 ED Decision to Admit Stat 09/06/19 16:55 Consult Orthopedic Surgery Routine Consult Pain Management Routine Ordered Studies 09/06/19 08:31 CT abd pelvis wo con Stat 09/06/19 12:30 MR lumbar spine wo con Stat Hospital Course (1) Intractable back pain: 54-year-old man with history of chronic back pain presented with acute inability to walk with intractable back pain. He was admitted to the hospitalist team and ortho spine was consulted. A lumbar spine MRI was revealing mild disc bulges at L1-L2 and L3-L4 levels. In addition there were small broad-based central disc protrusions at the L4-5 and L5-S1 levels with very mild spinal canal narrowing. There was mild left-sided foraminal narrowing at L4-5 level and mild to moderate bilateral foraminal narrowing at the L5-S1 level. He was given steroids in the form of Medrol, scheduled Tylenol, gabapentin, and Toradol with approximately 75% improvement in his pain the following morning. A Lidoderm patch was helpful and he also took a Roxicodone. This improved his pain completely and he was able to ambulate. Orthopedic spine was consulted and evaluated the patient the following morning. Their assessment was consistent with a lumbar strain. There were no acute surgical indications,and the patient was pain-free not requiring further therapy or hospitalization. He was stable for discharge and close follow-up with primary care as needed. At time of discharge he was hemodynamically stable and afebrile and tolerating p.o. He was mentating and ambulating at baseline and physical exam was otherwise unremarkable including no pain to palpation of his back, straight leg raise testing or neurologic deficit. During his hospitalization he was also given a CT scan of the abdomen pelvis without contrast for further investigation of right flank pain. This revealed no acute intra-abdominal or pelvic findings, no evidence of bowel obstruction, no evidence of free air, and normal appendix with no evidence of diverticulitis, no renal, ureteral, or bladder calculi identified and stable hepatic lesions, likely representing cysts. There was also a 25 mm exophytic indeterminate lesion arising in the lateral segment of left lobe however, this was stable. Further investigation by primary care as required. Total Time Total Time Spent Total Time Spent (In Minutes): 60 Total Time Includes: Examination of the Patient, Discharge Planning, Medication Reconciliation and Communication With Other Providers Discharge Plan Discharge Items Patient Disposition: Home - Self-Care Reason For Visit: SEVERE BACK PAIN Discharge Diagnosis: lumbar strain Condition on Discharge: Good Activity: Resume your previous activity Non-emergency contact: Primary Care Provider Call non-emergency contact if: you have any medication questions, your symptoms worsen, your pain is not controlled, your pain is worsening, your pain is unusual for you, your pain is concerning for you and you have a fever Follow-up/Referrals: Mariusz Gupta DO [Primary Care Provider] - Diet: Regular Addtl Attending Provider Instructions: Please take all medications as instructed on discharge list below. It is recommended that you follow-up with your primary care physician within one week of discharge from the hospital to ensure you are still doing well. It was a pleasure taking care of you! Please call if you have any questions or problems. You can reach a [facility] hospitalist on duty at [facility] 24 hours a day by calling [phone]. Take care of yourself. Laura Mendoza DO [facility] Hospitalist Pending Studies at Discharge: No Stand-Alone Forms: My [facility] [employer], Smoking Cessation Medications and DC Order Prescriptions: New ibuprofen 800 mg tablet 800 mg PO Q8H PRN (Reason: back pain) Qty: 30 RF: 0 lidocaine [Lidoderm] 5 % adhesive patch,medicated 1 patch TOP DAILY Qty: 15 RF: 1 Continued multivitamin Tablet 1 tab PO QAM RF: 0 diphenhydramine-acetaminophen [Tylenol PM Extra Strength] 25-500 mg Tablet 1 tab PO UD RF: 0 omega 0-lff-eer-fish oil [Fish Oil] 1,000 mg (120 mg-180 mg) Capsule 1 cap PO QDD RF: 0 omeprazole 20 mg Capsule,Delayed Release(Dr/Ec) 20 mg PO BID RF: 0 rosuvastatin [Crestor] 10 mg Tablet 10 mg PO QAM RF: 0 Discontinued ibuprofen 200 mg Tablet 800 mg PO QAM RF: 0 Discharge Orders: Discharge Order (Routine); Ordered 09/07/19 Ordered By: Laura Duncan/Other Patient Handouts: Back Pain Relieve Admission Data Admit Date/Time: 09/06/19 15:35 Attending Provider: Laura Mendoza Admit Provider: Prashanth Crenshaw Primary Care Provider: Mariusz Gupat Other Providers: Prashanth Crenshaw ; Fidelina Worley ; Julio Cesar Sprague Other Interventions: Discharge Summary Assessment (RN) Last Done: 09/07/19 14:22 DC Date/Time DO NOT enter until pt leaves facility: 09/07/19 14:38
[2019-09-08 07:35] LABS: Estimated Average Glucose 120 mg/dl; Hemoglobin A1C 5.8 % (4.5-5.6)
--- NOTE | 2019-09-08 08:05 | Pain Management Consultation ---
Date of Consultation September 08, 2019 Assessment & Plan (1) Degenerative disc disease, lumbar: pt was d/c'd prior to being seen. History of Present Illness Attending Physician: Laura Mendoza DO Allergies Allergy/AdvReac Type Severity Reaction Status Date / Time No Known Allergies AdvReac Unknown Unverified 09/06/19 09:13 Home Medications Home Medications Medication Instructions Recorded Confirmed Type omeprazole 20 mg PO BID 04/25/19 09/06/19 History rosuvastatin [Crestor] 10 mg PO QAM 04/25/19 09/06/19 History diphenhydramine-acetaminophen 1 tab PO UD 09/06/19 09/06/19 History [Tylenol PM Extra Strength] multivitamin 1 tab PO QAM 09/06/19 09/06/19 History omega 0-xsv-ikb-fish oil [Fish Oil] 1 cap PO QDD 09/06/19 09/06/19 History ibuprofen 800 mg PO Q8H PRN #30 tab 09/07/19 Rx lidocaine [Lidoderm] 1 patch TOP DAILY #15 ea 09/07/19 Rx Patient History Medical History HLD (hyperlipidemia) (Chronic) Herniated disc Peptic ulcer disease Surgical History Hx of shoulder surgery Family History Family/Other No problems noted. 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 ; Second Hand Exposure: No ; Tobacco Cessation Education Requested by Patient: No Hx Alcohol Use: Yes Alcohol type: beer and hard liquor Hx Substance Use: Yes substance use type: marijuana Last Used Substance: Unknown Last Used Substance Other:: Weeks ago.
== END 2019-09-07 14:38 | disposition home or self-care (01) ==
LOC: ED 08:07 → 3N 08:07 → SUATTDRO 15:35 → 3N 16:28